=== PATIENT | female | born 1945 | race Caucasian/White ===

== ENCOUNTER 2016-12-15 18:32 | Emergency (ER) | payer MEDICARE, BC, OTHER ==
[~2016-12-15] VITALS: Ht 167.6 cm; Wt 66.0 kg
[~2016-12-15 18:32] MED LIST: ALENDRONATE70 MG OR; ALENDRONATE70 MG PO; AMITRIPTYLIN25 MG PO; ANTIPYRINE/BENZ1 SOL AD; ASPIRIN EC81 MG PO; ASPIRIN LOW DOS81 MG PO; ATORVASTATI80 MG/TAB PO; CALCIUM + D OR; CALCIUM 500+D500 + OR; CALCIUM500 M5 PO; CELEBREX100 M1 PO; CELEBREX200 MG OR; CELEBREX200 MG PO; CIPROFLOXACN500 MG PO; CLOPIDOGREL75 MG PO; CYCLOBENZAPR10 MG OR; EFFEXOR XR75 MG OR; ERY-TAB250 MG OR; FAMOTIDINE20 M3 PO; FLEXERIL OR; FLONASE NASAL50 MCG; FLUARIX QUADRIV1 IN1 IM; FOLIC ACID1 M1 PO; GABAPENTIN300 MG PO; HYDROCO/APAP1 T10 PO; KEFLEX500 MG PO; LIPITOR40 M1 PO; LOPRESSOR12.5 MG PO; MELOXICAM15 MG PO; METO25TAB PO; METOPROLOL SUCC25 MG PO; METOPROLOL TART50 MG PO; MUPIROCIN2 %; NITROGLYCER0.4 MG SL; OXYCO/APAP1 TA5 PO; OXYCONTIN10 MG OR; OXYCONTIN10 MG PO; PAROXETINE20 MG PO; PERCOCET 10/31 COMBO PO; PRAVASTATIN SOD20 MG PO; RANITIDINE150 M1 PO; TIZANIDINE HCL2 MG OR; TOPAMAX25 MG OR; TOPIRAMATE25 M1 PO; TYLENOL & COD12.5 ML OR
[2016-12-15 20:10] VITALS: BP 129/58
[2016-12-15] MEDS ORDERED: EC-NAPROSYN500 MG PO (20:13)
[2016-12-15] MEDS ORDERED: FLEXERIL PO (20:13)
== END 2016-12-15 20:26 | disposition home or self-care (01) ==
LOC: ED 18:32
DX: M54.6 Pain in thoracic spine (principal); R07.81 Pleurodynia; W01.198A Fall on same level from slipping, tripping and stumbling with subsequent striking against other object, initial encounter; Y93.89 Activity, other specified; Y92.009 Unspecified place in unspecified non-institutional (private) residence as the place of occurrence of the external cause

== ENCOUNTER 2017-08-01 15:06 | Emergency (ER) | payer MEDICARE, BC, OTHER ==
[~2017-08-01] VITALS: Ht 167.6 cm; Wt 60.0 kg
[~2017-08-01 15:06] MED LIST changes: +EC-NAPROSYN500 MG PO; +FLEXERIL PO
[2017-08-01 16:44] LABS: HEMATOCRIT 42.7 % (37.0-47.0); HEMOGLOBIN 14.1 g/dl (12.0-16.0); IMMATURE GRANULOCYTES 0.1 % (0.0-1.0); MEAN CELL VOLUME 103.4 fL CALC (80.0-100.0); MEAN CORPUSCULAR HGB 34.1 pG CALC (26.0-32.0); NEUT# 4.57 thou/uL (2.00-7.15); RED BLOOD COUNT 4.13 mill/uL (4.20-5.60); RED CELL DISTRI WIDTH 11.9 % (11.5-15.5)
[2017-08-01 16:51] LABS: ALBUMIN 4.1 g/dL (3.2-5.0); ALKALINE PHOSPHATASE 83 u/l (38-126); BILIRUBIN, TOTAL 0.6 mg/dL (0.0-1.4); BUN 16 mg/dL (8-23); BUN/CREATININE RATIO 20 (12-20 (CALC)); CARBON DIOXIDE 29 mmol/l (22-30); CHLORIDE 106 mmol/l (95-108); CREATININE 0.8 mg/dL (0.5-1.0); GFR > 60 ML/MIN (>=60 (CALC)); GFR FOR AFR.AMER. > 60 ML/MIN (>=60 (CALC)); LIPASE 77 u/l (23-300); SGOT/AST 34 u/l (9-36); SGPT/ALT 32 u/l (11-66); SODIUM 141 mmol/l (137-146); TOTAL PROTEIN 7.2 g/dL (6.3-8.2)
[2017-08-01 16:55] LABS: ANION GAP 11 (6-22 (CALC)); POTASSIUM 4.6 mmol/l (3.5-5.1)
[2017-08-01 18:39] VITALS: BP 116/51
== END 2017-08-01 19:05 | disposition home or self-care (01) ==
LOC: ED 15:06
PROVIDERS: Emergency Medicine
DX: R51 Headache (principal); G89.29 Other chronic pain; R10.33 Periumbilical pain; R11.0 Nausea; Z86.73 Personal history of transient ischemic attack (TIA), and cerebral infarction without residual deficits

== ENCOUNTER → 2018-04-25 | Outpatient (REF) | payer MEDICARE, BC, OTHER ==
[2018-04-25 13:39] LABS: HEMOGLOBIN 13.8 g/dl (12.0-16.0); IMMATURE GRANULOCYTES 0.2 % (0.0-5.0); MEAN CELL VOLUME 106.7 fL CALC (80.0-100.0); MEAN CORPUSCULAR HGB 34.2 pG CALC (26.0-32.0); MEAN CORPUSCULAR HGB CONC 32.1 g/L CALC (32.0-36.0); NEUT# 4.28 thou/uL (2.00-7.15); RED BLOOD COUNT 4.03 mill/uL (4.20-5.60)
[2018-04-25 14:07] LABS: ALBUMIN 4.2 g/dL (3.2-5.0); ALKALINE PHOSPHATASE 74 u/l (38-126); ANION GAP 13 (6-22 (CALC)); BILIRUBIN, TOTAL 0.8 mg/dL (0.0-1.4); BUN 18 mg/dL (8-23); BUN/CREATININE RATIO 21 (12-20 (CALC)); CALCULATED LDLCHOLESTEROL 51 mg/dL (62-129 (CALC)); CARBON DIOXIDE 25 mmol/l (22-30); CHLORIDE 106 mmol/l (95-108); CHOLESTEROL HDL RATIO 2.5 (<4.4 (CALC)); CREATININE 0.9 mg/dL (0.5-1.0); GFR > 60 ML/MIN (>=60 (CALC)); GFR FOR AFR.AMER. > 60 ML/MIN (>=60 (CALC)); HDL CHOLESTEROL 45 mg/dL (>=40); POTASSIUM 4.7 mmol/l (3.5-5.1); SGOT/AST 30 u/l (9-36); SODIUM 140 mmol/l (137-146); TOTAL CHOLESTEROL 111 mg/dl (0-199); TOTAL PROTEIN 6.7 g/dL (6.3-8.2); TOTAL TRIGLYCERIDES 76 mg/dl (30-149); VLDL CHOLESTROL 15 mg/dl (0-48 (CALC))
== END | disposition home or self-care (01) ==
LOC: LAB 11:01
PROVIDERS: ATTEND Internal Medicine Geriatric Medicine
DX: I10 Essential (primary) hypertension (principal); E78.2 Mixed hyperlipidemia